=== PATIENT | male | born 1985 | race Hispanic/Latino ===

== ENCOUNTER 2024-11-12 10:28 | Emergency (ER) | payer BC ==
[~2024-11-12] VITALS: Ht 172.7 cm; Wt 90.7 kg
--- NOTE | 2024-11-12 10:38 | ERN ---
ED Note History of Present Illness Stated Complaint: LACERATION TO LEFT HAND Chief Complaint: Laceration/Avulsion Time Seen by MD: 10:31 Time Seen by Midlevel: 10:31 Dictation: 39-year-old male who presents to the ED for evaluation of his left wrist. Patient reports he was trying to cut some she rock when he accidentally cut himself. Does not remember when last tetanus shot was. Allergies: Coded Allergies: No Known Drug Allergies (Unverified Allergy, Unknown, 11/12/24) Past Medical History RN Note Reviewed/Agreed w/PFSH: Yes Review of System Dictation Constitutional: Negative for fever,chills, and weight loss Eyes: Negative for injury, pain,redness, and discharge ENT: Negative for injury,pain or swelling Cardiovascular: Negative for chest pain, palpitations, and edema Respiratory: Negative for shortness of breath, cough, and wheezing, Abdomen/GI: Negative for abdominal pain, nausea, vomiting, diarrhea, and c onstipation Back: Negative for injury and pain : Negative for injury, bleeding and discharge MS/Extremity: Negative for injury and deformity Skin: Negative for rash, and discoloration Neuro: Negative for headache, weakness, numbness, tingling, and seizure Psych: Negative for suicide ideation, homicidal ideation, and hallucinations Review of Systems: was completed Initial Vital Sign VS Vital Signs Date Time Temp Pulse Resp B/P (MAP) Pulse Ox O2 Delivery O2 Flow Rate FiO2 11/12/24 10:31 98.2 89 16 115/78 97 Room Air 0 Physical Exam Dictation General: awake, alert, NAD Head/Face: Normocephalic, atraumatic Eyes: PERRL, EOMI, vision at baseline ENT: oral cavity clear, TMs clear, no signs of infection Neck: Trachea midline, supple, no nuchal rigidity Cardiovascular: RRR, normal S1/S2, No MRGs, no JVD Respiratory: CTAB, no respiratory distress, No rales or wheezes Abdomen: Soft, non-tender, non-distended, normal bowel sounds, no guarding or rebound. Skin: Warm, dry, normal turgor, no rash. 5 cm laceration to left hand and wrist. FROM of wrist and digits, neurovascularly intact distally. radial pulse intact MS/Extremity: Pulses equal, no cyanosis, neurovascular intact, FROM Neuro: COAx4, GCS 15, strength 5/5, CN 2-12 intact, normal cerebellar exam, normal gait, Psych: Normal behavior, mood, and affect normal ED Course ED Course Orders Procedure Category Date Status Time Tetanus,Diphtheria PHA 11/12/24 Complete Tox [Adult] (Diphther 11:00 Lidocaine Hcl 1% 20ml PHA 11/12/24 Complete Vial (Lidocaine Hc 10:34 Ibuprofen 800 Mg Tab PHA 11/12/24 Complete (Motrin) 10:34 Current Medications Medications (Trade) Dose Ordered Sig/Alexa Route PRN Reason Start Time Stop Time Status Last Admin Dose Admin Ibuprofen (moTRIN) 800 mg ONCE STAT PO 11/12/24 10:34 11/12/24 10:37 DC 11/12/24 11:05 Lidocaine HCl (Lidocaine HCl 1% 20ml Vial) 10 ml ONCE STAT INJ 11/12/24 10:34 11/12/24 10:37 DC 11/12/24 10:58 Tetanus/ Diphtheria Toxoids Adsorbed (DiphthERIA-teTANUS TOXOID [ADULT]/ DECAVAC) 0.5 ml ONCE ONCE IM 11/12/24 11:00 11/12/24 11:01 DC 11/12/24 11:05 Vital Signs Date Time Temp Pulse Resp B/P (MAP) Pulse Ox O2 Delivery O2 Flow Rate FiO2 11/12/24 10:31 98.2 89 16 115/78 97 Room Air 0 Medical Decision Making MDM MDM: Differential diagnosis: Left-sided laceration, left wrist laceration, tendon involvement, abrasion Need for hospitalization: Patient does meet criteria for hospitalization. Need for emergency major/minor surgery: No I independently interpreted the test that were performed, results were reviewed by me and considered findings on radiology if ordered. Medical management and examination interpretation discussions were had by me with other qualified healthcare professionals as indicated for the patient's care. 39-year-old male who presents to the ED for evaluation of his left wrist. Patient reports he was trying to cut some she rock when he accidentally cut himself. Does not remember when last tetanus shot was. Patient was a 5 cm laceration of the left hand extending to the left wrist. Neurovascularly intact. Normal capillary refill less than 2 seconds. Radial pulse intact. Patient was full range of motion of all digits with intact sensation. No tendon involvement. Wound was thoroughly irrigated with 1000 cc of NS and cleansed with Betadine. 7 cc of 1% lidocaine was administered for local anesthesia. 11 sutures were placed in a simple interrupted fashion using 5-0 nylon. Patient tolerated the procedure well and being well controlled. Patient educated on wound care and recommended to come back in 10 days to get sutures removed. 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 Educated on return precautions. Patient was also updated on tetanus shot. Patient verbalized understanding, agreed with plan, and all questions were answered at this time. Procedure Wound Location: upper extremity (left hand/wrist) Wound Length (cm): 5 Wound's Depth, Shape: superficial, linear Wound Explored: clean Irrigated w/ Saline (ccs): 1000 Betadine Prep?: Yes Anesthesia: 1% Lidocaine Volume Anesthetic (ccs): 7 Wound Repaired With: sutures Suture Size/Type: 5:0 Number of Sutures: 11 Sterile Dressing Applied?: Yes DX & DISP Disposition: Discharge Departure Impression: Primary Impression: Laceration of left hand Condition: Stable Scripts Amoxicillin/Potassium Clav (Amox Tr-K Clv 875-125 mg Tab) 875 Mg-125 Mg Tablet 1 EACH PO BID for 7 Days, #14 TAB 0 Refills Prov: MACIE VELEZ 11/12/24 Additional Instructions: DISCHARGE HOME. REST. FOLLOW UP WITH PRIMARY CARE DRWally IN 24 HOURS. RETURN TO THE ER FOR ANY ACUTE CHANGE. RETURN IN 10 DAYS FOR REMOVAL OF SUTURES PATIENT WAS ALSO ADVISED TO FOLLOW-UP WITH PRIMARY CARE PHYSICIAN IN 1 TO 2 DAYS FOR CONTINUED MONITORING. ALL INSTRUCTIONS WERE GIVEN TO LAYMANS TERM AND PATIENT AGREEABLE TO DISCHARGE AND PROPER FOLLOW-UP. Referrals: SELF,REFERRAL (PCP) I have reviewed the case, and I agree with, Diagnosis and Plan MACIE VELEZ Nov 12, 2024 10:38
[2024-11-12] MEDS: LIDOCAINE HCL 1% 20 ML VIAL INJ STA (10:58)
[2024-11-12] MEDS: ibuPROFEN 800 MG TAB PO STA (11:05)
[2024-11-12] MEDS: teTANUS/diphthERIA TOXOID [ADULT] 0.5 ML VIAL IM ONE (11:05)
[2024-11-12] MEDS ORDERED: AMOX1TAB16 PO (11:28)
--- NOTE | 2024-11-12 11:30 | NUR ---
11 STITCHES APPLIED TO LEFT WRIST. PT TOLERATED PROCEDURE WELL. PAIN RELIEF AN TETANUS ADMINISTERED ORDERED.
[2024-11-12 11:47] VITALS: BP 119/79; PULSE 85; RESP 16; TEMP 98.2; O2SAT 97
== END 2024-11-12 11:47 | disposition home or self-care (01) ==
LOC: EDH 10:28
DX: S61.412A Laceration without foreign body of left hand, initial encounter (principal); W26.8XXA Contact with other sharp object(s), not elsewhere classified, initial encounter; Y93.89 Activity, other specified; Y92.89 Other specified places as the place of occurrence of the external cause; Y99.8 Other external cause status
CPT/HCPCS: 12002; 90471; 90714; 99284